=== PATIENT | male | born 1995 ===

== ENCOUNTER → 2022-06-16 | Outpatient (CLI) | payer OTHER | LOC: MHCPAIN 09:36 | DX: M47.897 Other spondylosis, lumbosacral region (principal); M53.3 Sacrococcygeal disorders, not elsewhere classified; M54.16 Radiculopathy, lumbar region | CPT/HCPCS: G0463 ==

== ENCOUNTER → 2022-07-21 | Outpatient (CLI) | payer OTHER | LOC: MHCPAIN 11:10 | DX: M47.817 Spondylosis without myelopathy or radiculopathy, lumbosacral region (principal); M54.16 Radiculopathy, lumbar region; M53.3 Sacrococcygeal disorders, not elsewhere classified | CPT/HCPCS: G0463; J1100; Q9967 ==